=== PATIENT | female | born 1960 | race Caucasian/White ===

== ENCOUNTER 2017-08-10 05:22 | Emergency (ER) | payer BC, OTHER ==
[2017-08-10 05:52] LABS: Blood, Urine Large (Negative); Nitrite Positive (Negative)
[2017-08-10] MEDS ORDERED: Ondansetron ODT 4 MG TAB ONE (06:01)
[2017-08-10 06:02] LABS: Specific Gravity, Urine 1.017 (1.002-1.036)
[2017-08-10 06:03] LABS: Glucose, Urine (Dipstick) Negative (Negative); Leukocyte Unable to Interpret (Negative); Protein, Urine (Dipstick) Unable to Interpret mg/dL (Neg-Trace)
[2017-08-10 06:04] LABS: Bilirubin Unable to Interpret (Negative); RBC/HPF GREATER THAN 50-TNTC HPF (0-3)
[2017-08-10 06:05] LABS: Bacteria/HPF 1+ HPF (None Seen); Squamous Epithelial 0-3 HPF (0-3); WBC/HPF 21-50 HPF (0-3)
[2017-08-10 06:07] LABS: Clarity Hazy (Clear)
[2017-08-10] MEDS ORDERED: Ciprofloxacin 500 MG TAB ONE (06:11)
== END 2017-08-10 06:15 | disposition home or self-care (01) ==
LOC: MADERS 05:22
DX: N39.0 Urinary tract infection, site not specified (principal); I10 Essential (primary) hypertension; E66.9 Obesity, unspecified; F31.9 Bipolar disorder, unspecified; F41.9 Anxiety disorder, unspecified
CPT/HCPCS: 81001; 99283; Q0162

== ENCOUNTER 2021-05-28 15:03 | Emergency (ER) | payer BC ==
[~2021-05-28 15:03] MED LIST: Iopamidol 370 76% 100 ML VIAL ONE
[2021-05-28] MEDS ORDERED: Ketorolac Tromethamine 30 MG/ML VIAL ONE (16:51)
[2021-05-28] MEDS ORDERED: Orphenadrine Citrate 60 MG/2 ML VIAL ONE (16:52)
[2021-05-28 17:13] LABS: Bilirubin Negative (Negative); Blood, Urine Negative (Negative); Clarity Clear (Clear); Glucose, Urine (Dipstick) Negative (Negative); Ketone, Urine Negative (Negative); Leukocyte Negative (Negative); Nitrite Negative (Negative); Protein, Urine (Dipstick) Negative (Neg-Trace); Specific Gravity, Urine 1.025 (1.005-1.030); Urobilinogen 0.2 mg/dL (Less than 2)
[2021-05-28 17:16] LABS: #Basophils 0.1 thou/uL (0.0-0.2); #Lymphocytes 1.2 thou/uL (1.20-3.40); #Monocytes 0.4 thou/uL (0.11-0.59); %Basophils 1.1 % (0.0-1.0); %Eosinophils 0.5 % (0.0-10.0); %Lymphocytes 17.9 % (21.0-51.0); %Monocytes 5.9 % (0.0-10.0); %Neutrophils 74.6 % (42.0-75.0); Hemoglobin 13.4 g/dL (12.0-16.0); Mean Corpuscular HGB CONC 31.2 g/dL (32.0-36.0); Mean Corpuscular Volume 92.9 fL (78.0-98.0); Mean Platelet Volume 7.2 fL (7.4-10.4); Platelet Count 248 thou/uL (130-400); RBC Distribution Width 12.6 % (11.5-14.5); Red Blood Cell (RBC) Count 4.62 mill/uL (4.20-5.40); White Blood Cell (WBC) Count 6.8 thou/uL (4.8-10.8)
[2021-05-28 17:31] LABS: ALT (SGPT) 19 U/L (8-55); AST (SGOT) 15 U/L (5-34); Alkaline Phosphatase 96 U/L (40-110); Anion Gap 12 mmol/L (10-20); BUN (Urea Nitrogen) 12 mg/dL (9.8-20.1); Bilirubin, Total 0.3 mg/dL (0.2-1.2); Calc. Creatinine Clearance 0 mL/min (70-130); Calcium 9.6 mg/dL (7.8-10.44); Carbon Dioxide 28 mmol/L (22-29); Chloride 106 mmol/L (98-107); Glucose 107 mg/dL (70-105); Lipase 14 U/L (8-78); Potassium 4.3 mmol/L (3.5-5.1); Sodium 142 mmol/L (136-145)
[2021-05-29 21:31] LABS: Chlamydia by PCR Not Detected (NotDetected); GC by PCR Not Detected (NotDetected)
== END 2021-05-28 19:30 | disposition home or self-care (01) ==
LOC: MADERS 15:03
DX: M54.42 Lumbago with sciatica, left side (principal); M46.96 Unspecified inflammatory spondylopathy, lumbar region; I10 Essential (primary) hypertension; E66.9 Obesity, unspecified
CPT/HCPCS: 36415; 74177; 80053; 81003; 83605; 83690; 85025; 87480; 87491; 87510; 87591; 87660; 96372; 96374; J1885; J2360; Q9967